=== PATIENT | male | born 1930 | race Caucasian/White ===

== ENCOUNTER → 2017-02-19 | Outpatient (CLI) | payer MEDICARE, BC | END | disposition home or self-care (01) | LOC: WOUND 07:52 | PROVIDERS: ATTEND Specialist | DX: E11.628 Type 2 diabetes mellitus with other skin complications (principal); R21 Rash and other nonspecific skin eruption; D48.5 Neoplasm of uncertain behavior of skin; J44.9 Chronic obstructive pulmonary disease, unspecified; E78.5 Hyperlipidemia, unspecified; I10 Essential (primary) hypertension; Z87.891 Personal history of nicotine dependence; Z72.89 Other problems related to lifestyle; Z96.652 Presence of left artificial knee joint; Z95.0 Presence of cardiac pacemaker | CPT/HCPCS: 97597; G0463; 99215; WOU0463 ==

== ENCOUNTER → 2017-02-26 | Outpatient (CLI) | payer MEDICARE, BC | END | disposition home or self-care (01) | LOC: WOUND 14:44 | PROVIDERS: ATTEND Nurse Practitioner Family | DX: T81.31XA Disruption of external operation (surgical) wound, not elsewhere classified, initial encounter (principal); E11.628 Type 2 diabetes mellitus with other skin complications; J44.9 Chronic obstructive pulmonary disease, unspecified; E78.5 Hyperlipidemia, unspecified; I10 Essential (primary) hypertension; Z95.0 Presence of cardiac pacemaker; Z96.652 Presence of left artificial knee joint; Z87.891 Personal history of nicotine dependence; Z72.89 Other problems related to lifestyle; Y83.8 Other surgical procedures as the cause of abnormal reaction of the patient, or of later complication, without mention of misadventure at the time of the procedure; Y92.89 Other specified places as the place of occurrence of the external cause | CPT/HCPCS: G0463; WOU0463 ==

== ENCOUNTER → 2017-12-10 | Outpatient (CLI) | payer MEDICARE, BC | END | disposition home or self-care (01) | LOC: CFH 15:31 | PROVIDERS: ATTEND Physician Assistant Medical | DX: M50.33 Other cervical disc degeneration, cervicothoracic region (principal); M43.12 Spondylolisthesis, cervical region; M47.812 Spondylosis without myelopathy or radiculopathy, cervical region | CPT/HCPCS: 72125 ==

== ENCOUNTER → 2018-03-10 | Outpatient (CLI) | payer MEDICARE, BC | END | disposition home or self-care (01) | LOC: CFH 13:56 | PROVIDERS: ATTEND Physician Assistant Medical | DX: I37.1 Nonrheumatic pulmonary valve insufficiency (principal); I35.8 Other nonrheumatic aortic valve disorders; I10 Essential (primary) hypertension; E78.5 Hyperlipidemia, unspecified; I48.91 Unspecified atrial fibrillation | CPT/HCPCS: 93306 ==

== ENCOUNTER → 2018-10-03 | Outpatient (CLI) | payer MEDICARE, BC | END | disposition home or self-care (01) | LOC: RAD 12:32 | PROVIDERS: ATTEND Genetic Counselor, MS | DX: M47.812 Spondylosis without myelopathy or radiculopathy, cervical region (principal); R90.82 White matter disease, unspecified; G96.8 Other specified disorders of central nervous system; M85.88 Other specified disorders of bone density and structure, other site; M43.8X9 Other specified deforming dorsopathies, site unspecified; M40.209 Unspecified kyphosis, site unspecified; M89.38 Hypertrophy of bone, other site; Z95.0 Presence of cardiac pacemaker; Z79.01 Long term (current) use of anticoagulants | CPT/HCPCS: 70450; 72125 ==

== ENCOUNTER 2019-11-05 13:16 | Outpatient (CLI) | payer MEDICARE, BC ==
[~2019-11-05 13:16] MED LIST: ATOR-2 PO; CHOL100014 PO; CYAN250013 PO; FINA5TAB4 PO; FURO20TA3 PO; METO25TA91 PO; MIRA25TA PO; POTA20PA31 PO; PSYL0.5215 PO; RIVA15TA PO; SPIR25TA5 PO; TAMS-11 PO; UBID100C41 PO
== END 2019-11-05 23:59 | disposition home or self-care (01) ==
LOC: CFH 13:16
PROVIDERS: ATTEND Psychiatry & Neurology Neurology
DX: G31.89 Other specified degenerative diseases of nervous system (principal); J34.1 Cyst and mucocele of nose and nasal sinus; G91.8 Other hydrocephalus
CPT/HCPCS: 70450

== ENCOUNTER → 2020-03-11 | Outpatient (CLI) | payer MEDICARE, BC | END | disposition home or self-care (01) | LOC: CVU 12:23 | PROVIDERS: ATTEND Internal Medicine Cardiovascular Disease | DX: I83.92 Asymptomatic varicose veins of left lower extremity (principal) | CPT/HCPCS: 93970 ==

== ENCOUNTER → 2020-11-02 | Outpatient (CLI) | payer MEDICARE, BC | END | disposition home or self-care (01) | LOC: CFH 14:29 | PROVIDERS: ATTEND Internal Medicine Cardiovascular Disease | DX: I08.8 Other rheumatic multiple valve diseases (principal); I11.9 Hypertensive heart disease without heart failure; E11.9 Type 2 diabetes mellitus without complications | CPT/HCPCS: 93306 ==